=== PATIENT | male | born 1975 | race Caucasian/White ===

== ENCOUNTER 2022-11-16 08:56 | Emergency (ER) | payer BC ==
[~2022-11-16] VITALS: Ht 188 cm; Wt 131.5 kg
[2022-11-16] MEDS ORDERED: FAMOTIDINE 20MG VIAL IV ONE (09:00)
[2022-11-16] MEDS ORDERED: METOCLOPRAMIDE 10 MG/2 ML VIAL IVP ONE (09:00)
[2022-11-16 09:29] LABS: BASOPHILS % (AUTO) 0.1 % (0.0-5.0); EOSINOPHILS % (AUTO) 1.1 % (0.0-8.0); HEMATOCRIT 41.8 % (42-54); LYMPHOCYTES % (AUTO) 9.5 % (21.0-51.0); MEAN CORPUSCULAR HEMOGLOBIN 28.1 pg (27.0-33.0); MEAN CORPUSCULAR HGB CONC 33.3 g/dL (32.0-36.0); MEAN CORPUSCULAR VOLUME 84.4 fL (79-99); MONOCYTES % (AUTO) 7.2 % (3.0-13.0); NEUTROPHILS % (AUTO) 81.7 % (40.0-77.0); PLATELET COUNT (AUTO) 235 K/uL (130-400); RED BLOOD CELL COUNT(AUTO) 4.95 MIL/uL (4.50-6.20); RED CELL DISTRIBUTION WIDTH 12.9 % (11.0-15.5); WHITE BLOOD COUNT (AUTO) 9.4 K/uL (4.8-10.8)
[2022-11-16 09:37] LABS: CREATININE 1.4 mg/dL (0.5-1.5); POTASSIUM 3.8 mmol/L (3.5-5.1)
[2022-11-16 09:41] LABS: ALBUMIN 3.6 g/dL (3.5-5.0); TOTAL PROTEIN, SERUM 7.3 g/dL (6.0-8.3)
[2022-11-16] MEDS ORDERED: FAMOTIDINE 20MG TAB PO ONE (10:00)
[2022-11-16] MEDS ORDERED: METOCLOPRAMIDE 10 MG TABLET PO ONE (10:00)
[2022-11-16 11:52] VITALS: BP 135/78; PULSE 78; RESP 18; O2SAT 98
== END 2022-11-16 11:54 | disposition home or self-care (01) ==
LOC: EDH 08:56
DX: K29.70 Gastritis, unspecified, without bleeding (principal); J45.909 Unspecified asthma, uncomplicated
CPT/HCPCS: 36415; 80053; 83690; 85025

== ENCOUNTER 2023-04-28 14:57 | Emergency (ER) | payer BC ==
[~2023-04-28] VITALS: Ht 188 cm; Wt 127.0 kg
[2023-04-28] MEDS ORDERED: ALBUTEROL 0.083% 2.5 MG/3 ML INH IH ONE ×3 (14:58→23:00)
[2023-04-28] MEDS ORDERED: M.V.I. IV [ADULT] 10 ML VIAL IV ONE (14:58)
[2023-04-28] MEDS ORDERED: 0.9%NACL 1000ML 1,000 ML IV ONE ×2 (15:30→16:00)
[2023-04-28] MEDS ORDERED: FAMOTIDINE 20MG TAB PO ONE (15:30)
[2023-04-28] MEDS ORDERED: KETOROLAC 30MG VIAL (30MG/ML) IVP ONE (15:30)
[2023-04-28] MEDS ORDERED: LEVOFLOXACIN 750 MG/D5W 150ML BAG IV ONE (15:30)
[2023-04-28] MEDS ORDERED: IPRATROPIUM/ALBUTEROL SULFATE 3 ML SOLUTION IH ONE (15:30)
[2023-04-28] MEDS ORDERED: SOLU-MEDROL 125MG VIAL IVP ONE (15:30)
[2023-04-28] MEDS ORDERED: ACETAMINOPHEN 325 MG TAB PO ONE (15:30)
[2023-04-28] MEDS ORDERED: BUDESONIDE 0.5 MG/2 ML INH IH ONE (16:06)
[2023-04-28 16:16] VITALS: PULSE 102; RESP 21
[2023-04-28 17:02] LABS: BASOPHILS # (AUTO) 0.02 K/uL (0.00-0.20); BASOPHILS % (AUTO) 0.4 % (0.0-5.0); EOSINOPHILS # (AUTO) 0.06 K/uL (0.00-0.70); EOSINOPHILS % (AUTO) 1.1 % (0.0-8.0); HEMATOCRIT 41.5 % (42-54); IMMATURE GRANULOCYTE ABSOLUTE 0.04 K/uL (0-1); LYMPHOCYTES # (AUTO) 0.7 K/uL (1.0-4.8); LYMPHOCYTES % (AUTO) 12.6 % (21.0-51.0); MEAN CORPUSCULAR HEMOGLOBIN 28.5 pg (27.0-33.0); MEAN CORPUSCULAR VOLUME 86.3 fL (79-99); MONOCYTES # (AUTO) 0.7 K/uL (0.1-1.0); MONOCYTES % (AUTO) 12.3 % (3.0-13.0); NEUTROPHILS # (AUTO) 4.2 K/uL (1.8-7.7); NEUTROPHILS % (AUTO) 72.9 % (40.0-77.0); PLATELET COUNT (AUTO) 192 K/uL (130-400); RED BLOOD CELL COUNT(AUTO) 4.81 MIL/uL (4.50-6.20); RED CELL DISTRIBUTION WIDTH 13.8 % (11.0-15.5); WHITE BLOOD COUNT (AUTO) 5.7 K/uL (4.8-10.8)
[2023-04-28 17:24] LABS: COVID19 (SARS ANTIGEN RAPID) PRESUMPTIVE NEGATIVE (NEGATIVE); INFLUENZA TYPE B Negative For Type B (NEGATIVE)
[2023-04-28 17:30] LABS: INFLUENZA TYPE A Positive For Type A (NEGATIVE)
[2023-04-28 17:42] LABS: CREATININE 1.7 mg/dL (0.5-1.5); POTASSIUM 3.4 mmol/L (3.5-5.1)
[2023-04-28 17:47] LABS: ALBUMIN 3.5 g/dL (3.5-5.0); BILIRUBIN,TOTAL 0.6 mg/dL (0.2-1.0); TOTAL PROTEIN, SERUM 7.4 g/dL (6.0-8.3)
[2023-04-28] MEDS ORDERED: BUDESONIDE 0.5 MG/2 ML INH IH SCH (18:00)
[2023-04-28] MEDS ORDERED: OSELTAMIVIR PHOSPHATE 75 MG CAP PO ONE (18:00)
[2023-04-28 18:21] VITALS: PULSE 79; RESP 18
[2023-04-28] MEDS ORDERED: METH4TAB3 PO (19:32)
[2023-04-28] MEDS ORDERED: BENZ-39 PO (19:32)
[2023-04-28] MEDS ORDERED: LEVO750T68 PO (19:32)
[2023-04-28] MEDS ORDERED: OSEL75 PO (19:32)
[2023-04-28 20:18] VITALS: BP 142/80; O2SAT 97
[2023-04-28] MEDS ORDERED: BENZONATATE 100 MG CAPSULE PO ONE ×2 (20:18→20:30)
[2023-04-28 22:58] VITALS: PULSE 74
[2023-04-29] MEDS ORDERED: M.V.I. IV [ADULT] 10 ML, FOLIC ACID 1 MG, THIAMINE HCL 100 MG in 0.9%NACL 1000ML 1,000 ML IV STA (01:22)
[2023-04-29] MEDS ORDERED: KETOROLAC 30MG VIAL (30MG/ML) IVP ONE (01:30)
[2023-04-29] MEDS ORDERED: METOCLOPRAMIDE 10 MG/2 ML VIAL IVP ONE (01:30)
[2023-04-29] MEDS ORDERED: FAMOTIDINE 20MG VIAL IV ONE (01:30)
[2023-04-29] MEDS ORDERED: ACETAMINOPHEN 500 MG TABLET PO ONE (01:30)
[2023-04-29] MEDS ORDERED: FOLIC ACID 5 MG/ML VIAL ONE (04:09)
[2023-04-29] MEDS ORDERED: THIAMINE HCL 100 MG/ML 2ML VIAL ONE (04:09)
[2023-04-29] MEDS ORDERED: M.V.I. IV [ADULT] 10 ML VIAL IV ONE (04:10)
[2023-04-29 04:47] VITALS: PULSE 84; RESP 18
[2023-04-29] MEDS ORDERED: ALBUTEROL 0.083% 2.5 MG/3 ML INH IH ONE (05:00)
[2023-05-05] MEDS ORDERED: TAMS-1 PO (08:42)
== END 2023-04-28 20:26 | disposition home or self-care (01) ==
LOC: EDH 14:57
DX: J10.1 Influenza due to other identified influenza virus with other respiratory manifestations (principal); E86.0 Dehydration; F17.200 Nicotine dependence, unspecified, uncomplicated; J45.909 Unspecified asthma, uncomplicated
CPT/HCPCS: 99285; 96365; 71045; 96375; 96366; 87426; 80053; 85025; 87040 ×2; 87804 ×2; 83605; 36415; 94640 ×3; J1956; J7030; J2930; J1885; 96367; 96376; J2765; J3411; J3490